=== PATIENT | male | born 1960 | race Caucasian/White ===

== ENCOUNTER 2018-08-01 15:11 | Emergency (ER) | payer OTHER ==
[~2018-08-01] VITALS: Ht 170.2 cm; Wt 111.1 kg
[2018-08-01 15:48] VITALS: BP 139/79
--- NOTE | 2018-08-01 15:57 | NUR ---
VITAL SIGNS STABLE . WAIT IN LOBBY.
--- NOTE | 2018-08-01 16:39 | NUR ---
PT AMBULATED TO ER BED 12
[2018-08-01] MEDS ORDERED: KETOROLAC 30 MG/ML VIAL IM ONE (17:00)
--- NOTE | 2018-08-01 17:03 | NUR ---
C/O RIGHT KNEE PAIN 8/10 X YESTERDAY. DENIES TRAUMA. . DENIES N/V/D; SKIN IS PINK/WARM/DRY; AAOX4 WITH EVEN AND STEADY GAIT; LUNGS CLEAR BL; HR EVEN AND REGULAR; PT DENIES ANY FEVER, CP, SOB, OR COUGH AT THIS TIME; PATIENT STATES PAIN OF 8/10 AT THIS TIME; VSS; PATIENT POSITIONED FOR COMFORT; HOB ELEVATED; BEDRAILS UP X2; BED DOWN. ER MD MADE AWARE OF PT STATUS.
[2018-08-01 18:31] VITALS: BP 135/72
== END 2018-08-01 18:31 | disposition home or self-care (01) ==
LOC: MED 15:11
DX: M25.561 Pain in right knee (principal); M79.89 Other specified soft tissue disorders; I10 Essential (primary) hypertension; W22.8XXA Striking against or struck by other objects, initial encounter; Y93.89 Activity, other specified; Y92.69 Other specified industrial and construction area as the place of occurrence of the external cause; Y99.0 Civilian activity done for income or pay
CPT/HCPCS: 29505; 73562; 96372; 99283; J1885; Q0092